=== PATIENT | female | born 1985 | race American Indian/Alaskan Native ===

== ENCOUNTER 2020-08-20 10:56 | Outpatient (CLI) | payer OTHER ==
[2020-08-20 11:54] LABS: Alanine Aminotransferase 16 units/L (7-56); Albumin 4.2 g/dL (3.9-5); Blood Urea Nitrogen 6 mg/dL (7-17); Calcium 8.5 mg/dL (8.4-10.2); Hemolysis Index 1
[2020-08-20 11:58] LABS: BUN/Creatinine Ratio 10
[2020-08-22 12:13] LABS: Vitamin D, 25-OH, D2 <4 ng/mL
== END 2020-08-20 10:57 | disposition home or self-care (01) ==
LOC: LAB 10:56
PROVIDERS: ATTEND Specialist
DX: G62.9 Polyneuropathy, unspecified (principal)
CPT/HCPCS: 36415; 80053; 82306; 82607; 83036; 83921; 84443; 86592